=== PATIENT | female | born 1970 | race Caucasian/White ===

== ENCOUNTER → 2016-10-06 | Outpatient (CLI) | payer BC ==
--- NOTE | 2016-10-07 12:53 | MM ---
Reason for exam: screening (asymptomatic). Last mammogram was performed 5 years and 6 months ago. History: Family history of breast cancer in grandmother at age 82. Physical Findings: A clinical breast exam by your physician is recommended on an annual basis and results should be correlated with mammographic findings. MG Screening Mammo w CAD Bilateral CC and MLO view(s) were taken. Prior study comparison: April 22, 2011, bilateral digital screening mammo w/CAD. April 14, 2006, bilateral screening mammogram w/CAD. There are scattered fibroglandular densities. Focal asymmetry in the left outer upper region posteriorly, increased. This finding is changed when compared with previous exams. ASSESSMENT: Incomplete: need additional imaging evaluation, BI-RAD 0 RECOMMENDATION: Special view mammogram of the left breast. If lesion persists on supplemental views, image directed ultrasound is recommended. [facility] will attempt to contact patient to return for supplemental views and ultrasound if indicated.
== END | disposition home or self-care (01) ==
LOC: RADMAMWWP 08:31
PROVIDERS: ATTEND Family Medicine
DX: Z12.31 Encounter for screening mammogram for malignant neoplasm of breast (principal)

== ENCOUNTER → 2016-10-11 | Outpatient (CLI) | payer BC ==
--- NOTE | 2016-10-11 08:21 | MM ---
Reason for exam: additional evaluation requested from abnormal screening. Last mammogram was performed less than 1 month ago. History: Patient has history of other cancer at age 36. Family history of breast cancer in grandmother at age 82 and breast cancer in 3 aunts at age 60. Took hormonal contraceptives for 12 years beginning at age 14. Physical Findings: Nurse did not find any significant physical abnormalities on exam. MG Work Up Mamm w CAD LT CC, MLO, LM, and spot compression MLO view(s) were taken of the left breast. Prior study comparison: October 06, 2016, bilateral MG screening mammo w CAD. April 22, 2011, bilateral digital screening mammo w/CAD. Asymmetric breast tissue. No significant new findings when compared with previous films. These results were verbally communicated with the patient and result sheet given to the patient on 10/27/16. ASSESSMENT: Benign, BI-RAD 2 RECOMMENDATION: Return to routine screening mammogram schedule for both breasts.
== END | disposition home or self-care (01) ==
LOC: RADMAMWWP 07:01
PROVIDERS: ATTEND Family Medicine
DX: R92.8 Other abnormal and inconclusive findings on diagnostic imaging of breast (principal); Z80.3 Family history of malignant neoplasm of breast

== ENCOUNTER → 2017-02-18 | Outpatient (CLI) | payer BC ==
--- NOTE | 2017-02-18 14:12 | US ---
EXAMINATION TYPE: US duplex aorta DATE OF EXAM: 02/18/2017 COMPARISON: CT abdomen and pelvis December 08, 2015 CLINICAL HISTORY: R19.00 abdominal mass. EXAM MEASUREMENTS: Abdominal Aorta: Proximal: 1.4 x1.3 cm Mid: 1.4 x 1.3 cm Distal: 1.5 x 1.4 bilateral iliac arteries patent and wnl for caliber negative for aneurysm IMPRESSION: Abdominal aorta is visualized in its entirety without ultrasound evidence for aneurysm.
== END | disposition home or self-care (01) ==
LOC: RADUSWWP 13:40
PROVIDERS: ATTEND Family Medicine
DX: R19.00 Intra-abdominal and pelvic swelling, mass and lump, unspecified site (principal); Z88.0 Allergy status to penicillin; Z88.2 Allergy status to sulfonamides
CPT/HCPCS: 93979

== ENCOUNTER → 2018-05-17 | Outpatient (CLI) | payer BC ==
--- NOTE | 2018-05-18 13:55 | MM ---
Reason for exam: screening (asymptomatic). Last mammogram was performed 1 year and 7 months ago. History: Patient has history of other cancer at age 36. Family history of breast cancer in grandmother at age 82 and breast cancer in 3 aunts at age 60. Took hormonal contraceptives for 12 years beginning at age 14. Physical Findings: A clinical breast exam by your physician is recommended on an annual basis and results should be correlated with mammographic findings. MG Screening Mammo w CAD Bilateral CC and MLO view(s) were taken. Prior study comparison: October 11, 2016, left breast MG work up mamm w CAD LT. October 06, 2016, bilateral MG screening mammo w CAD. There are scattered fibroglandular densities. No suspicious abnormality. Left lateral asymmetry is less conspicuous than 2017 and seen back to 2006. ASSESSMENT: Benign, BI-RAD 2 RECOMMENDATION: Routine screening mammogram of both breasts in 1 year.
== END | disposition home or self-care (01) ==
LOC: RADMAMWWP 13:29
PROVIDERS: ATTEND Family Medicine
DX: Z12.31 Encounter for screening mammogram for malignant neoplasm of breast (principal); Z80.3 Family history of malignant neoplasm of breast
CPT/HCPCS: 77067

== ENCOUNTER → 2020-09-26 | Outpatient (CLI) | payer BC ==
--- NOTE | 2020-09-29 14:16 | MM ---
Reason for exam: screening (asymptomatic). Last mammogram was performed 2 years and 4 months ago. History: Patient has history of other cancer at age 36. Family history of breast cancer in grandmother at age 82 and breast cancer in 3 aunts at age 60. Took hormonal contraceptives for 12 years beginning at age 14. Physical Findings: A clinical breast exam by your physician is recommended on an annual basis and results should be correlated with mammographic findings. MG Screening Mammo w CAD Bilateral CC and MLO view(s) were taken. Prior study comparison: May 17, 2018, bilateral MG screening mammo w CAD. October 11, 2016, left breast MG work up mamm w CAD LT. There are scattered fibroglandular densities. Finding: There are indeterminate grouped/clustered calcifications in the anterior position of the left breast. Asymmetric breast tissue in the left breast is stable. New finding since May 17, 2018 and October 11, 2016. ASSESSMENT: Incomplete: need additional imaging evaluation, BI-RAD 0 RECOMMENDATION: Special view mammogram of the left breast. [facility] will attempt to contact patient to return for supplemental views.
== END | disposition home or self-care (01) ==
LOC: RADMAMWWP 09:16
PROVIDERS: ATTEND Family Medicine
DX: Z12.31 Encounter for screening mammogram for malignant neoplasm of breast (principal); Z80.3 Family history of malignant neoplasm of breast
CPT/HCPCS: 77067

== ENCOUNTER → 2020-10-01 | Outpatient (CLI) | payer BC ==
--- NOTE | 2020-10-01 08:59 | MM ---
Reason for exam: additional evaluation requested from abnormal screening. Last mammogram was performed less than 1 month ago. History: Patient has history of other cancer at age 36. Family history of breast cancer in grandmother at age 82 and breast cancer in 3 aunts at age 60. Took hormonal contraceptives for 12 years beginning at age 14. Physical Findings: Nurse did not find any significant physical abnormalities on exam. MG Work Up Mamm w CAD LT Spot compression CC, spot compression LM, and LM view(s) were taken of the left breast. Prior study comparison: September 26, 2020, bilateral MG screening mammo w CAD. May 17, 2018, bilateral MG screening mammo w CAD. Two indeterminate groups of microcalcifications upper outer and inner central left breast 2cm from nipple. Biopsy recommended. These results were verbally communicated with the patient and result sheet given to the patient on 10/01/20. ASSESSMENT: Suspicious, BI-RAD 4 RECOMMENDATION: Stereotactic core biopsy of the left breast. (2 sites) Called Dr. Og's office with mammographic findings and has scheduled an appointment for the patient with Dr. Mitchell. Biopsy scheduled for 11/03/20 at 8:00. PRELIMINARY REPORT CALLED AND FAXED TO DR. MITCHELL ON 10/01/20.
== END | disposition home or self-care (01) ==
LOC: RADMAMWWP 07:38
PROVIDERS: ATTEND Family Medicine
DX: R92.0 Mammographic microcalcification found on diagnostic imaging of breast (principal); Z80.3 Family history of malignant neoplasm of breast
CPT/HCPCS: 77065

== ENCOUNTER → 2020-11-03 | Day surgery (SDC) | payer BC ==
[2020-11-03 09:32] VITALS: BP 125/85; PULSE 65; RESP 16; TEMP 98.5
--- NOTE | 2020-11-03 16:54 | MM ---
STEREOTACTIC GUIDED VACUUM-ASSISTED BREAST BIOPSY RADIOLOGIST: Renard Mckeon M.D. ANESTHESIA: 1% buffered lidocaine as local anesthetic DEVICE: Mammotome 8 gauge BIOPSY MARKER CLIP: No SPECIMEN RADIOGRAPH: Yes COMPLICATIONS: None DISCUSSION: The procedure and risks were explained to the patient and written informed consent obtain ed. Using local anesthetic, sterile technique and stereotactic guidance, the stereotactic vacuum ass isted core biopsy device was advanced and positioned in the region of microcalcifications left breast . The stereotactic core biopsy device was advanced according to the stereotactic coordinates and posi tioned in the region of the calcifications. Multiple core samples were obtained. Breast specimen ra diograph confirmed presence of a few microcalcifications. The area of the anterior retroareolar breas t calcifications was difficult to biopsy on this 2-D unit. A 3-D guided biopsy of these microcalcific ations may be helpful depending on pathology results. An attempt to deploy the biopsy marker clip was unsuccessful. Hemostasis was achieved with direct com pression over the breast. Postprocedural imaging shows no biopsy marker clip. There were no complications. The patient tolerate d procedure well. Post procedure instructions were given to the patient and the patient was discharge d in satisfactory condition. A follow-up letter will be forthcoming after receiving pathology resul ts. IMPRESSION: Technically successful stereotactic guided vacuum assisted core biopsy left breast with breast specim en radiograph obtained, and 2 view mammogram performed. The biopsy marker clip could not be deployed . A repeat biopsy with 3-D stereotactic guidance may be helpful. Pathology results will be reviewed.
--- NOTE | 2020-11-03 17:11 | MM ---
EXAMINATION TYPE: MG discontinued stereo core LT DATE OF EXAM: 11/03/2020 COMPARISON: Same date CLINICAL HISTORY: Suspicious retroareolar calcifications TECHNIQUE: Discontinued Stereotactic guided core biopsy of left breast. FINDINGS: The procedure of stereotactic guided core biopsy was explained to the patient. Benefits, a lternatives, and risks were discussed. An informed consent was then obtained. The procedure was canceled due to inability to target the microcalcifications seen at the second site of microcalcifications in the retroareolar breast. These may be more easily targeted on a 3-D stereo tactic biopsy device. This procedure should be rescheduled to a 3-D stereotactic guided biopsy. IMPRESSION: Discontinued stereotactic guided biopsy of the left breast. This procedure should be rescheduled to a 3-D stereotactic guided biopsy of retroareolar microcalcifications.
== END ==
LOC: RADMAMWWP 07:15
PROVIDERS: ATTEND Surgery
DX: N60.12 Diffuse cystic mastopathy of left breast (principal); R92.1 Mammographic calcification found on diagnostic imaging of breast; R92.8 Other abnormal and inconclusive findings on diagnostic imaging of breast; Z88.0 Allergy status to penicillin; Z88.2 Allergy status to sulfonamides; Z88.8 Allergy status to other drugs, medicaments and biological substances
CPT/HCPCS: 88305; 19081; A4648; J2001

== ENCOUNTER → 2021-06-17 | Outpatient (CLI) | payer BC ==
--- NOTE | 2021-06-17 14:08 | MM ---
Reason for exam: additional evaluation requested from prior study. Last mammogram was performed 8 months ago. History: Patient has history of other cancer at age 36. Family history of breast cancer in grandmother at age 82 and breast cancer in 3 aunts at age 60. Benign MG stereo VAD BX LT of the left breast, November 03, 2020. MG discontinued stereo core LT of the left breast, November 03, 2020. Took hormonal contraceptives for 12 years beginning at age 14. Physical Findings: Nurse did not find any significant physical abnormalities on exam. MG 3D Diag Mammo W/Cad LT CC, MLO, CC with magnification, and ML with magnification view(s) were taken of the left breast. Prior study comparison: October 01, 2020, left breast MG work up mamm w CAD LT. September 26, 2020, bilateral MG screening mammo w CAD. There are scattered fibroglandular densities. Global asymmetry lateral posterior is unchanged. Two faint groups of subareolar calcifications. These are smudgy on CC and may begin to layer on lateral. Benign milk of calcium is suspected. These results were verbally communicated with the patient and result sheet given to the patient on 06/17/21. ASSESSMENT: Probably benign, BI-RAD 3 RECOMMENDATION: Follow-up diagnostic mammogram of both breasts in 3 months. Back on schedule for September 2021.
== END | disposition home or self-care (01) ==
LOC: RADMAMWWP 12:58
PROVIDERS: ATTEND Surgery
DX: R92.8 Other abnormal and inconclusive findings on diagnostic imaging of breast (principal); Z80.3 Family history of malignant neoplasm of breast
CPT/HCPCS: 77061; 77065

== ENCOUNTER → 2021-11-03 | Outpatient (CLI) | payer BC ==
--- NOTE | 2021-11-17 07:09 | MM ---
Reason for Exam: Hx of benign breast biopsy. Last mammogram was performed 1 year(s) and 1 month(s) ago. Patient History: Menarche at age 9. First Full-Term at age 21. Postmenopausal. Hormonal Contraceptives for 12 years from age 14 until age 26. 11/03/2020, Benign Core Biopsy on the left side. 11/03/2020, MG discontinued stereo core LT on the left side. Paternal grandmother had breast cancer, age 82. Paternal aunt had breast cancer, age 60. Paternal aunt had breast cancer, age 60. Paternal aunt had breast cancer, age 60. Risk Values: Lela 5 year model risk: 1.2%. NCI Lifetime model risk: 10.0%. Prior Study Comparison: 04/22/2011 Bilateral Screening Mammogram, [facility]. 10/06/2016 Bilateral Screening Mammogram, [facility]. 05/17/2018 Bilateral Screening Mammogram, [facility]. 09/26/2020 Bilateral Screening Mammogram, [facility]. 10/01/2020 Left Diagnostic Mammogram, [facility]. Tissue Density: There are scattered fibroglandular densities. Findings: Analyzed By CAD. 2 subtle groups of calcifications anterior subareolar/periareolar left breast remain unchanged for one year. Ongoing follow-up is recommended. Benign etiology is suspected given the stability. Unchanged asymmetric density posterolateral left cc view. Otherwise, no significant change from prior exams. Overall Assessment: Probably benign, BI-RAD 3 Management: Diagnostic Mammogram of the left breast in 6 months. 6 month follow-up diagnostic left breast mammogram for the 2 subtle groups of microcalcifications anteriorly (this will be a total 1.5 year follow-up). Patient should continue monthly self breast exams. Electronically signed and approved by: Bob Perkins M.D. Radiologist
== END | disposition home or self-care (01) ==
LOC: RADMAMWWP 11:00
PROVIDERS: ATTEND Surgery
DX: R92.1 Mammographic calcification found on diagnostic imaging of breast (principal); Z78.0 Asymptomatic menopausal state; Z80.3 Family history of malignant neoplasm of breast
CPT/HCPCS: 77062; 77066

== ENCOUNTER → 2022-05-17 | Outpatient (CLI) | payer BC ==
--- NOTE | 2022-05-17 13:29 | MM ---
Reason for Exam: Follow-up at short interval from prior study. Last screening mammogram was performed 7 month(s) ago. Patient History: Menarche at age 9. First Full-Term at age 21. Postmenopausal. Hormonal Contraceptives for 12 years from age 14 until age 26. 11/03/2020, Benign Core Biopsy on the left side. 11/03/2020, MG discontinued stereo core LT on the left side. Paternal grandmother had breast cancer, age 82. Paternal aunt had breast cancer, age 60. Paternal aunt had breast cancer, age 60. Paternal aunt had breast cancer, age 60. Risk Values: Lela 5 year model risk: 1.3%. NCI Lifetime model risk: 9.8%. Prior Study Comparison: 10/01/2020 Left Diagnostic Mammogram, [facility]. 06/17/2021 Left Diagnostic Mammogram, [facility]. 11/03/2021 Bilateral MG 3D diag mammo w/cad CEDRIC, [facility]. Tissue Density: Left: The breast tissue is heterogeneously dense. This may lower the sensitivity of mammography. Findings: Analyzed By CAD. Scattered benign calcifications left breast. No suspicious clusters seen. No mass or distortion. Overall Assessment: Benign, BI-RAD 2 Management: Screening Mammogram of both breasts in 6 months. A clinical breast exam by your physician is recommended on an annual basis and results should be correlated with mammographic findings. This exam should not preclude additional follow-up of suspicious palpable abnormalities. Results were given to the patient verbally at the time of exam. Electronically signed and approved by: Amol Crawford M.D. Radiologis
== END | disposition home or self-care (01) ==
LOC: RADMAMWWP 13:06
PROVIDERS: ATTEND Surgery
DX: R92.8 Other abnormal and inconclusive findings on diagnostic imaging of breast (principal); Z78.0 Asymptomatic menopausal state; Z80.3 Family history of malignant neoplasm of breast
CPT/HCPCS: 77061; 77065

== ENCOUNTER → 2022-11-26 | Outpatient (CLI) | payer BC ==
--- NOTE | 2022-11-29 07:41 | MM ---
Reason for Exam: Screening (asymptomatic). Last mammogram was performed 1 year(s) and 1 month(s) ago. Patient History: Menarche at age 9. First Full-Term at age 21. Postmenopausal. Hormonal Contraceptives for 12 years from age 14 until age 26. 11/03/2020, Benign Core Biopsy on the left side. 11/03/2020, MG discontinued stereo core LT on the left side. Paternal grandmother had breast cancer, age 82. Paternal aunt had breast cancer, age 60. Paternal aunt had breast cancer, age 60. Paternal aunt had breast cancer, age 60. Paternal aunt had breast cancer at or over age 50. Maternal grandmother had ovarian cancer under age 50. Risk Values: Lela 5 year model risk: 1.3%. NCI Lifetime model risk: 9.8%. Prior Study Comparison: 10/06/2016 Bilateral Screening Mammogram, [facility]. 10/11/2016 Left Diagnostic Mammogram, [facility]. 05/17/2018 Bilateral Screening Mammogram, [facility]. 09/26/2020 Bilateral Screening Mammogram, [facility]. 10/01/2020 Left Diagnostic Mammogram, [facility]. 06/17/2021 Left Diagnostic Mammogram, [facility]. 11/03/2021 Bilateral MG 3D diag mammo w/cad CEDRIC, [facility]. 05/17/2022 Left MG 3D diag mammo w/cad LT, [facility]. Tissue Density: There are scattered fibroglandular densities. Findings: Analyzed By CAD. There is no suspicious group of microcalcifications or new suspicious mass in either breast. Overall Assessment: Negative, BI-RAD 1 Management: Screening Mammogram of both breasts in [address] [facility] will attempt to contact patient to return for supplemental views and ultrasound if indicated. Patient should continue monthly self-breast exams. A clinical breast exam by your physician is recommended on an annual basis. This exam should not preclude additional follow-up of suspicious palpable abnormalities. Note on Lela scores and lifetime risk: 1. A Lela score greater than 3% is considered moderate risk. If this is the case, consider specialist referral to assess eligibility for a risk reducing agent. 2. If overall lifetime risk for the development of breast cancer is 20% or higher, the patient may qualify for future screening with alternating mammogram and breast MRI. Electronically signed and approved by: Jean Carlos Chahal DO
== END | disposition home or self-care (01) ==
LOC: RADMAMWWP 08:27
PROVIDERS: ATTEND Surgery
DX: Z12.31 Encounter for screening mammogram for malignant neoplasm of breast (principal); Z78.0 Asymptomatic menopausal state; Z80.3 Family history of malignant neoplasm of breast
CPT/HCPCS: 77063; 77067

== ENCOUNTER 2023-11-11 09:15 | Observation (INO) | payer BC ==
--- NOTE | 2023-11-11 09:27 | ED ---
General Adult HPI - General Stated complaint: ZOE Time Seen by Provider: 11/11/23 09:19 Source: patient, RN notes reviewed Mode of arrival: wheelchair Limitations: no limitations - History of Present Illness Initial comments: Patient is a 52-year-old female present to the emergency department with abdominal discomfort. Abdominal discomfort just started prior to arrival, less than an hour. Patient was in a meeting. Patient states discomfort is severe. No history of similar symptoms previously. Patient states it is causing her to be short of breath. Patient denies chest pain. No nausea or vomiting. No constipation or diarrhea. - Related Data Home Medications Medication Instructions Recorded Confirmed Triamterene/Hydrochlorothiazid 1 cap PO QAM 02/26/22 11/11/23 [Triamterene-Hctz 37.5-25 mg Cp] Allergies Allergy/AdvReac Type Severity Reaction Status Date / Time shellfish derived [Shellfish] Allergy Vomiting/SO Verified 11/11/23 10:03 B sulfamethoxazole Allergy Rash/Hives Verified 11/11/23 10:03 [From Febra] trimethoprim [From Febra] Allergy Rash/Hives Verified 11/11/23 10:03 amoxicillin AdvReac Dyspnea Verified 11/11/23 10:03 Review of Systems ROS Statement: Those systems with pertinent positive or pertinent negative responses have been documented in the HPI. ROS Other: All systems not noted in ROS Statement are negative. Constitutional: Denies: fever Eyes: Denies: eye pain ENT: Denies: ear pain Respiratory: Reports: as per HPI, dyspnea Cardiovascular: Reports: as per HPI. Denies: chest pain Gastrointestinal: Reports: as per HPI, abdominal pain Musculoskeletal: Denies: back pain Skin: Denies: rash Neurological: Denies: weakness Past Medical History Past Medical History: Hypertension Additional Past Medical History / Comment(s): KIDNEY STONE History of Any Multi-Drug Resistant Organisms: None Reported Past Surgical History: Appendectomy, Section, Cholecystectomy, Uterine Ablation Additional Past Surgical History / Comment(s): x3 Past Anesthesia/Blood Transfusion Reactions: No Reported Reaction Past Alcohol Use History: None Reported General Exam Limitations: no limitations General appearance: alert, other (Patient does appear uncomfortable) Head exam: Present: normocephalic Eye exam: Present: normal appearance Neck exam: Present: normal inspection Respiratory exam: Present: normal lung sounds bilaterally Cardiovascular Exam: Present: tachycardia, normal heart sounds Expanded Peripheral pulses: 2+: Radial (R), Radial (L), Dorsalis Pedis (R), Dorsalis Pedis (L) GI/Abdominal exam: Present: soft. Absent: distended, tenderness, guarding, rebound, rigid, pulsatile mass Extremities exam: Present: normal inspection Neurological exam: Present: alert Psychiatric exam: Present: anxious Skin exam: Present: normal color Course Vital Signs 11/11/23 11/11/23 11/11/23 09:17 09:27 10:12 Temperature 93.7 F L 97.4 F L Pulse Rate 128 H 104 H Respiratory 18 22 Rate Blood Pressure 145/110 155/96 O2 Sat by Pulse 95 98 Oximetry EKG Findings - EKG Results: EKG: interpreted by SADA (Nonspecific ST), sinus rhythm, normal axis, normal QRS EKG shows: tachycardia Medical Decision Making - Medical Decision Making Was pt. sent in by a medical professional or institution (, PA, HOTEL OPERATIONS MANAGER, urgent care, hospital, or [facility]...) When possible be specific @ -No Did you speak to anyone other than the patient for history (EMS, parent, family, police, friend...)? What history was obtained from this source @ -No Did you review nursing and triage notes (agree or disagree)? Why? @ -I reviewed and agree with nursing and triage notes Were old charts reviewed (outside hosp., previous admission, EMS record, old EKG, old radiological studies, urgent care reports/EKG's, [facility] records)? Report findings @ -No old charts were reviewed Differential Diagnosis (chest pain, altered mental status, abdominal pain women, abdominal pain men, vaginal bleeding, weakness, fever, dyspnea, syncope, headache, dizziness, GI bleed, back pain, seizure, CVA, palpatations, mental health, musculoskeletal)? @ -Differential Abdominal Pain Women: Appendicitis, Cholecystitis, diverticulosis, ischemic bowel, pancreatitis, hepatitis, UTI, gastroenteritis, AAA, incarcerated hernia, bowel obstruction, constipation, inflammatory bowel, hepatitis, peptic ulcer disease, splenic infarction, perforated viscus, vulvitis, ovarian torsion, PID, kidney stone, placenta abruption, this is not meant to be an all-inclusive list EKG interpreted by me (3pts min.). @ -As above X-rays interpreted by me (1pt min.). @ -Chest x-ray shows no acute process CT interpreted by me (1pt min.). @ -CT scan of abdomen pelvis shows colitis. U/S interpreted by me (1pt. min.). @ -None done What testing was considered but not performed or refused? (CT, X-rays, U/S, labs)? Why? @ -None What meds were considered but not given or refused? Why? @ -None Did you discuss the management of the patient with other professionals (professionals i.e. , PA, HOTEL OPERATIONS MANAGER, lab, RT, psych nurse, pediatric social worker, shredder/granulator operator, teacher, affirmative action officer, heel caser)? Give summary @ -Case discussed with Dr. Owens who will admit covering July Yeung Was smoking cessation discussed for >3mins.? @ -No Was critical care preformed (if so, how long)? @ -No Were there social determinants of health that impacted care today? How? (Homelessness, low income, unemployed, alcoholism, drug addiction, transportation, low edu. Level, literacy, decrease access to med. care, residential, rehab)? @ -No Was there de-escalation of care discussed even if they declined (Discuss DNR or withdrawal of care, Hospice)? DNR status @ -No What co-morbidities impacted this encounter? (DM, HTN, Smoking, COPD, CAD, Cancer, CVA, ARF, Chemo, Hep., AIDS, mental health diagnosis, sleep apnea, morbid obesity)? @ -None Was patient admitted / discharged? Hospital course, mention meds given and route, prescriptions, significant lab abnormalities, going to OR and other pertinent info. @ -Patient presents with very severe abdominal discomfort. Significantly improved on reevaluation after 2 doses of pain medication. Discomfort is 3 or 4/10 at this time. Patient has mild tenderness to palpation. Patient will be admitted with surgical consult. Admission orders placed. Undiagnosed new problem with uncertain prognosis? @ -No Drug Therapy requiring intensive monitoring for toxicity (Heparin, Nitro, Insulin, Cardizem)? @ -No Were any procedures done? @ -No Diagnosis/symptom? @ -Colitis Acute, or Chronic, or Acute on Chronic? @ -Acute Uncomplicated (without systemic symptoms) or Complicated (systemic symptoms)? @ -Default Side effects of treatment? @ -No Exacerbation, Progression, or Severe Exacerbation? @ -No Poses a threat to life or bodily function? How? (Chest pain, [place], [place], pneumonia, PE, COPD, DKA, ARF, appy, cholecystitis, CVA, Diverticulitis, Homicidal, Suicidal, threat to staff... and all critical care pts) @ -No - Lab Data Result diagrams: 11/11/23 09:33 11/11/23 09:33 Lab Results 11/11/23 11/11/23 11/11/23 Range/Units 09:33 09:33 09:33 WBC 8.6 (3.8-10.6) k/uL RBC 5.19 (3.80-5.40) m/uL Hgb 15.8 (11.4-16.0) gm/dL Hct 46.7 H (34.0-46.0) % MCV 90.0 D (80.0-100.0) fL MCH 30.4 (25.0-35.0) pg MCHC 33.8 (31.0-37.0) g/dL RDW 12.9 (11.5-15.5) % Plt Count 376 (150-450) k/uL MPV 7.0 Neutrophils % 49 % Lymphocytes % 37 % Monocytes % 7 % Eosinophils % 3 % Basophils % 1 % Neutrophils # 4.3 (1.3-7.7) k/uL Lymphocytes # 3.2 (1.0-4.8) k/uL Monocytes # 0.6 (0-1.0) k/uL Eosinophils # 0.2 (0-0.7) k/uL Basophils # 0.1 (0-0.2) k/uL PT 10.1 (10.0-12.5) sec INR 0.9 (<1.2) APTT 21.1 L (22.0-30.0) sec D-Dimer 0.32 (<0.60) mg/L FEU Sodium 141 (137-145) mmol/L Potassium 3.3 L (3.5-5.1) mmol/L Chloride 106 (98-107) mmol/L Carbon Dioxide 25 (22-30) mmol/L Anion Gap 10 mmol/L BUN 16 (7-17) mg/dL Creatinine 0.88 (0.52-1.04) mg/dL Est GFR (CKD-EPI)AfAm 87 (>60 ml/min/1.73 sqM) Est GFR (CKD-EPI)NonAf 75 (>60 ml/min/1.73 sqM) Glucose 129 H (74-99) mg/dL Calcium 10.1 (8.4-10.2) mg/dL Total Bilirubin 0.8 (0.2-1.3) mg/dL AST 46 H (14-36) U/L ALT 55 H (4-34) U/L Alkaline Phosphatase 98 (38-126) U/L Troponin I (0.000-0.034) ng/mL Total Protein 8.7 H (6.3-8.2) g/dL Albumin 5.0 (3.5-5.0) g/dL Amylase 59 (30-110) U/L Lipase 439 H (23-300) U/L 11/11/23 Range/Units 09:33 WBC (3.8-10.6) k/uL RBC (3.80-5.40) m/uL Hgb (11.4-16.0) gm/dL Hct (34.0-46.0) % MCV (80.0-100.0) fL MCH (25.0-35.0) pg MCHC (31.0-37.0) g/dL RDW (11.5-15.5) % Plt Count (150-450) k/uL MPV Neutrophils % % Lymphocytes % % Monocytes % % Eosinophils % % Basophils % % Neutrophils # (1.3-7.7) k/uL Lymphocytes # (1.0-4.8) k/uL Monocytes # (0-1.0) k/uL Eosinophils # (0-0.7) k/uL Basophils # (0-0.2) k/uL PT (10.0-12.5) sec INR (<1.2) APTT (22.0-30.0) sec D-Dimer (<0.60) mg/L FEU Sodium (137-145) mmol/L Potassium (3.5-5.1) mmol/L Chloride (98-107) mmol/L Carbon Dioxide (22-30) mmol/L Anion Gap mmol/L BUN (7-17) mg/dL Creatinine (0.52-1.04) mg/dL Est GFR (CKD-EPI)AfAm (>60 ml/min/1.73 sqM) Est GFR (CKD-EPI)NonAf (>60 ml/min/1.73 sqM) Glucose (74-99) mg/dL Calcium (8.4-10.2) mg/dL Total Bilirubin (0.2-1.3) mg/dL AST (14-36) U/L ALT (4-34) U/L Alkaline Phosphatase (38-126) U/L Troponin I <0.012 (0.000-0.034) ng/mL Total Protein (6.3-8.2) g/dL Albumin (3.5-5.0) g/dL Amylase (30-110) U/L Lipase (23-300) U/L Disposition Clinical Impression: Colitis Disposition: ADMITTED IP TO THIS HOSP Is patient prescribed a controlled substance at d/c from ED?: No Referrals: July Mitchell MD [Primary Care Provider] - 1-2 days Time of Disposition: 10:59
[2023-11-11] MEDS: HYDROmorphone 1 MG/ML 1 ML SYRINGE IVP STA ×2 (09:28→09:48)
[2023-11-11] MEDS: SODIUM CHLORIDE 0.9% 1,000 ML IV STA (09:32)
[2023-11-11] MEDS: PANTOPRAZOLE 40 MG/10 ML VIAL IVP STA (09:32)
[2023-11-11 09:37] LABS: Basophils # (A) 0.1 k/uL (0-0.2); Basophils % (A) 1 %; Eosinophils # (A) 0.2 k/uL (0-0.7); Eosinophils % (A) 3 %; HCT 46.7 % (34.0-46.0); HGB 15.8 gm/dL (11.4-16.0); Lymphocytes # (A) 3.2 k/uL (1.0-4.8); Lymphocytes % (A) 37 %; MCH 30.4 pg (25.0-35.0); MCHC 33.8 g/dL (31.0-37.0); Monocytes # (A) 0.6 k/uL (0-1.0); Monocytes % (A) 7 %; Neutrophils # (A) 4.3 k/uL (1.3-7.7); Neutrophils % (A) 49 %; Platelet Count 376 k/uL (150-450); RBC 5.19 m/uL (3.80-5.40); RDW 12.9 % (11.5-15.5); WBC 8.6 k/uL (3.8-10.6)
[2023-11-11 09:57] LABS: INR 0.9 (<1.2); Prothrombin Time 10.1 sec (10.0-12.5)
[2023-11-11 10:00] LABS: ALT 55 U/L (4-34); AST 46 U/L (14-36); African American GFR (CKD) 87 (>60 ml/min/1.73 sqM); Alkaline Phosphatase 98 U/L (38-126); Amylase 59 U/L (30-110); Anion Gap 10 mmol/L; Blood Urea Nitrogen 16 mg/dL (7-17); Calcium 10.1 mg/dL (8.4-10.2); Carbon Dioxide 25 mmol/L (22-30); Chloride 106 mmol/L (98-107); Glucose 129 mg/dL (74-99); Lipase 439 U/L (23-300); Non-African American GFR(CKD) 75 (>60 ml/min/1.73 sqM); Partial Thromboplastin Time 21.1 sec (22.0-30.0); Potassium 3.3 mmol/L (3.5-5.1); Sodium 141 mmol/L (137-145); Total Bilirubin 0.8 mg/dL (0.2-1.3); Total Protein 8.7 g/dL (6.3-8.2)
--- NOTE | 2023-11-11 10:16 | XR ---
EXAMINATION TYPE: XR chest 1V portable DATE OF EXAM: 11/11/2023 COMPARISON: NONE HISTORY: Difficulty in breathing TECHNIQUE: Single frontal view of the chest is obtained. FINDINGS: There is no focal air space opacity, pleural effusion, or pneumothorax seen. The cardiac silhouette size is within normal limits. The osseous structures are intact. Limited inspiration. Clemente rgical clips in the gallbladder fossa. IMPRESSION: No acute process.
--- NOTE | 2023-11-11 10:21 | CT ---
EXAMINATION TYPE: CT abdomen pelvis w con DATE OF EXAM: 11/11/2023 COMPARISON: NONE HISTORY: 52-year-old female Abdominal pain TECHNIQUE: Contiguous axial scanning of the abdomen and pelvis following administration of 100 ml Iso maurice 300 IV contrast. Delayed images through the kidneys and coronal/sagittal reconstructions perform ed. CT DLP: 808.3 mGycm Automated exposure control for dose reduction was used. FINDINGS: The heart is normal size without pericardial effusion. Strandy atelectasis lower lungs with out pleural effusion. Tiny 1 cm minute hepatic cyst. Portal venous system is patent. mild prominence to the bile duct at 6 mm likely chronic due to postcholecystectomy status. Adrenal glands, right kidney, spleen, and pancreas within normal limits. 2.8 cm diverticulum of the d uodenum projecting into the pancreatic head region. 4 mm nonobstructive left lower pole renal calculus. A couple benign 8 mm cortical cyst left kidney. No excretion of contrast seen on the delayed phase. Correlate with patient's kidney function. No dilated small bowel, free fluid, or free air. Some surgical material noted in the right lower quadrant suggesting prior appendectomy. There is some circumferential wall thickening throughout the colon extending from the cecum through t he descending colon and then mildly involving the rectum as well. Sigmoid colon relatively spared. So me associated liquid stool in the right side of the colon. No significant stool burden. Bladder partially distended. Uterus anteverted. 2.3 cm cyst of the left ovary. Right ovary not well seen. No abnormal fluid collection in the pelvis or pelvic lymphadenopathy. Bones: Facet arthropathy lower lumbar spine. IMPRESSION: 1. MILD TO MODERATE CIRCUMFERENTIAL WALL THICKENING THROUGHOUT MOST OF THE COLON, SPARING THE SIGMOID COLON. CONSIDER AN INFECTIOUS OR INFLAMMATORY COLITIS. 2. A 4 MM NONOBSTRUCTIVE LEFT RENAL STONE. 3. NO EXCRETION OF CONTRAST FROM THE KIDNEYS ON THE DELAYED SCAN. THIS MAY BE DUE TO SCAN TIMING. COR RELATE WITH THE PATIENT'S KIDNEY FUNCTION TO EXCLUDE CHANTAL. 4. A 2.3 CM CYST OF THE LEFT OVARY. CORRELATE WITH THE PATIENT'S MENOPAUSAL STATE. IF POSTMENOPAUSAL, OUTPATIENT PELVIC ULTRASOUND CAN PROVIDE FURTHER CHARACTERIZATION AND PROVIDE SUBSEQUENT FOLLOW-UP R ECOMMENDATIONS.
[2023-11-11] MEDS ORDERED: ONDANSETRON 4 MG/2 ML VIAL IVP PRN (10:59)
[2023-11-11] MEDS ORDERED: NALOXONE 0.4 MG/ML 1 ML VIAL IV PRN (10:59)
[2023-11-11] MEDS: SODIUM CHLORIDE 0.9% 1,000 ML IV SCH (11:15)
--- NOTE | 2023-11-11 14:39 | P.GSCN ---
History of Present Illness Consult date: 11/11/23 History of present illness: CHIEF COMPLAINT: Abdominal pain HISTORY OF PRESENT ILLNESS: This is a 52-year-old female who presented with sharp cramping abdominal pain located in the upper abdomen that started this morning. She rates the pain a 10 out of 10. It was causing her to be short of breath. She does report nausea no vomiting. She has been having diarrhea. She reports no blood in her stools. The last episode of diarrhea was this morning. She reports that she has been having some intermittent abdominal cramping over the last 6 weeks but the pain this morning was the most severe pain. CT scan reported evidence of colitis. She did have elevated lactic acid level. She had been mildly tachycardic. Patient's past surgical history does include appen dectomy, cholecystectomy C-sections x 3 and uterine ablation. Family history of a sister and son with colitis and a grandmother with colon cancer. Patient reports recent traveling to [place] and just returned home 2 days ago. She reports that no 1 else is sick that she traveled with. She denies any sick contacts. Patient does report improvement in pain after receiving pain medication. Patient denies any alcohol use. Patient reports her last colonoscopy was about 11 years ago. Patient denies any recent antibiotic use. PAST MEDICAL HISTORY: Hypertension, kidney stone PAST SURGICAL HISTORY: Appendectomy, Section, Cholecystectomy, Uterine Ablation MEDICATIONS: See below ALLERGIES: See below SOCIAL HISTORY: No illicit drug use. REVIEW OF SYSTEMS: CONSTITUTIONAL: Denies fever or chills. HEENT: Denies blurred vision, vision changes, or eye pain. Denies hemoptysis CARDIOVASCULAR: Denies chest pain or pressure. RESPIRATORY: No shortness of breath. GASTROINTESTINAL: See HPI for pertinent findings HEMATOLOGIC: Denies bleeding disorders. GENITOURINARY: Denies any blood in urine or increased urinary frequency. SKIN: Denies pruitis. Denies rash. PHYSICAL EXAM: VITAL SIGNS: Reviewed GENERAL: Well-developed in no acute distress. HEENT: No sclera icterus. Extraocular movements grossly intact. Moist buccal mucosa. Head is atraumatic, normocephalic. No nasal drainage. ABDOMEN: Soft. Nondistended. Currently nontender. NEUROLOGIC: Alert and oriented. Cranial nerves II through XII grossly intact. LABORATORY DATA: WBC 8.6 Hgb 15.8 platelets 376 D-dimer 0.32 Sodium 141 potassium 3.3 creatinine 0.88 Lactic acid 2.1 down to 1.1 Total bili 0.8 AST 46 ALT 55 alk phos 98 Troponin negative Lipase 439 amylase 59 IMAGING: CT scan abdomen pelvis reports mild to moderate circumferential wall thickening throughout most of the colon with sparing the sigmoid colon. Consider an infectious or inflammatory colitis. 4 mm nonobstructive left renal stone. 2.3 cm cyst of the left ovary. ASSESSMENT: 1. Colitis with abdominal pain abdominal pain and diarrhea. CT scan showing mild to moderate circumferential wall thickening throughout most of the colon. Consider infectious or inflammatory colitis 2. Mildly elevated lipase and LFTs. History of cholecystectomy and denies ETOH use PLAN: -Plan for colonoscopy Tuesday with Dr. Choudhary -Continue clear liquid diet -Check stool studies -Check stool for C. difficile -Repeat LFTS, lipase in AM -Continue fluids -Continue pain management and antiemetics colonoscopy Physician Grievance And Appeals Coordinator note has been reviewed by physician. Signing provider agrees with the documented findings, assessment, and plan of care. Past Medical History Past Medical History: Hypertension Additional Past Medical History / Comment(s): KIDNEY STONE History of Any Multi-Drug Resistant Organisms: None Reported Past Surgical History: Appendectomy, Section, Cholecystectomy, Uterine Ablation Additional Past Surgical History / Comment(s): x3 Past Anesthesia/Blood Transfusion Reactions: No Reported Reaction Past Alcohol Use History: None Reported Medications and Allergies Home Medications Medication Instructions Recorded Confirmed Type Triamterene/Hydrochlorothiazid 1 cap PO QAM 02/26/22 11/11/23 History [Triamterene-Hctz 37.5-25 mg Cp] Allergies Allergy/AdvReac Type Severity Reaction Status Date / Time shellfish derived [Shellfish] Allergy Vomiting/SO Verified 11/11/23 10:03 B sulfamethoxazole Allergy Rash/Hives Verified 11/11/23 10:03 [From ] trimethoprim [From ] Allergy Rash/Hives Verified 11/11/23 10:03 amoxicillin AdvReac Dyspnea Verified 11/11/23 10:03 Surgical - Exam Vital Signs Temp Pulse Resp BP Pulse Ox 96.7 F L 128 H 18 145/110 95 11/11/23 09:17 11/11/23 09:17 11/11/23 09:17 11/11/23 09:17 11/11/23 09:17 Results - Labs 11/11/23 09:33 11/11/23 09:33 Abnormal Lab Results - Last 24 Hours (Table) 11/11/23 11/11/23 11/11/23 Range/Units 09:33 09:33 09:33 Hct 46.7 H (34.0-46.0) % APTT 21.1 L (22.0-30.0) sec Potassium 3.3 L (3.5-5.1) mmol/L Glucose 129 H (74-99) mg/dL Plasma Lactic Acid Chad (0.7-2.0) mmol/L AST 46 H (14-36) U/L ALT 55 H (4-34) U/L Total Protein 8.7 H (6.3-8.2) g/dL Lipase 439 H (23-300) U/L 11/11/23 Range/Units 11:04 Hct (34.0-46.0) % APTT (22.0-30.0) sec Potassium (3.5-5.1) mmol/L Glucose (74-99) mg/dL Plasma Lactic Acid Chad 2.1 H* (0.7-2.0) mmol/L AST (14-36) U/L ALT (4-34) U/L Total Protein (6.3-8.2) g/dL Lipase (23-300) U/L Diabetes panel 11/11/23 Range/Units 09:33 Sodium 141 (137-145) mmol/L Potassium 3.3 L (3.5-5.1) mmol/L Chloride 106 (98-107) mmol/L Carbon Dioxide 25 (22-30) mmol/L BUN 16 (7-17) mg/dL Creatinine 0.88 (0.52-1.04) mg/dL Glucose 129 H (74-99) mg/dL Calcium 10.1 (8.4-10.2) mg/dL AST 46 H (14-36) U/L ALT 55 H (4-34) U/L Alkaline Phosphatase 98 (38-126) U/L Total Protein 8.7 H (6.3-8.2) g/dL Albumin 5.0 (3.5-5.0) g/dL Calcium panel 11/11/23 Range/Units 09:33 Calcium 10.1 (8.4-10.2) mg/dL Albumin 5.0 (3.5-5.0) g/dL Pituitary panel 11/11/23 Range/Units 09:33 Sodium 141 (137-145) mmol/L Potassium 3.3 L (3.5-5.1) mmol/L Chloride 106 (98-107) mmol/L Carbon Dioxide 25 (22-30) mmol/L BUN 16 (7-17) mg/dL Creatinine 0.88 (0.52-1.04) mg/dL Glucose 129 H (74-99) mg/dL Calcium 10.1 (8.4-10.2) mg/dL Adrenal panel 11/11/23 Range/Units 09:33 Sodium 141 (137-145) mmol/L Potassium 3.3 L (3.5-5.1) mmol/L Chloride 106 (98-107) mmol/L Carbon Dioxide 25 (22-30) mmol/L BUN 16 (7-17) mg/dL Creatinine 0.88 (0.52-1.04) mg/dL Glucose 129 H (74-99) mg/dL Calcium 10.1 (8.4-10.2) mg/dL Total Bilirubin 0.8 (0.2-1.3) mg/dL AST 46 H (14-36) U/L ALT 55 H (4-34) U/L Alkaline Phosphatase 98 (38-126) U/L Total Protein 8.7 H (6.3-8.2) g/dL Albumin 5.0 (3.5-5.0) g/dL
[2023-11-11] MEDS: metroNIDAZOLE 500 MG TAB PO SCH (16:35)
[2023-11-11] MEDS: LEVOFLOXACIN 500MG-D5W PMX 500 MG in DEXTROSE/WATER 1 100ML.BAG IVPB SCH (16:35)
[2023-11-11] MEDS: HYDROmorphone 1 MG/ML 1 ML SYRINGE IVP PRN (18:44)
--- NOTE | 2023-11-11 21:43 | HP ---
HISTORY AND PHYSICAL CHIEF COMPLAINT: Abdominal pain, diarrhea. HISTORY OF PRESENT ILLNESS: This is a 52-year-old woman with a past medical history of multiple medical problems such as hypertension, being followed by Dr. July Mitchell in the outpatient setting, recently returned from vacation from [place]. The patient is complaining of diffuse abdominal pain as well as multiple episodes of diarrhea. The patient was admitted for further evaluation and treatment. There is no history of any fever, rigors, or chills at this time. Evaluation in the ER showed evidence of some elevated lactic acid, elevated lipase and also a CT scan of the abdomen and pelvis was done in the ER, which showed mild to moderate circumferential wall thickening throughout. Most of the colon has sparing sigmoid, renal cyst and also has left renal stone. There is no history of any fever, rigors, or chills at this time. PAST MEDICAL HISTORY: Hypertension, kidney stone. Rest of the history and rest of the chart is also reviewed. HOME MEDICATIONS: Reviewed include triamterene, hydrochlorothiazide. ALLERGIES: Shellfish. Rest of the allergies noted. FAMILY HISTORY: No history of heart disease or strokes in the family. SOCIAL HISTORY: No history of smoking or alcohol. REVIEW OF SYSTEMS: A 14-point review is negative except as mentioned earlier. PHYSICAL EXAMINATION: VITAL SIGNS: Pulse is 79, blood pressure 105/76, respirations 16. HEENT: Conjunctivae normal. NECK: No JVD. CARDIOVASCULAR: S1, S2. RESPIRATIONS: Breath sounds diminished at the bases. ABDOMEN: Soft, mild diffuse tenderness present. No guarding. No rigidity. No mass palpable. No ascites. LEGS: No edema. NERVOUS SYSTEM: Nonfocal. LABORATORY DATA: CBC within normal limits. Potassium 3.3. Rest of the labs are noted. ASSESSMENT: 1. Abdominal pain, diarrhea, possibly diffuse colitis, possibly infectious versus inflammatory. 2. Elevated AST, ALT. 3. Elevated lipase with normal amylase. 4. History of hypertension, history of renal stones. 5. Appendectomy. RECOMMENDATIONS AND DISCUSSION: This is a 52-year-old woman, who presented with multiple complex medical issues, we will monitor the patient closely. Continue the current medications, continue symptomatic treatment. Otherwise, at this time, I would recommend broad-spectrum IV antibiotics, symptomatic treatment. Surgical evaluation. Guarded prognosis because of multiple complex medical issues. Further recommendations to follow. See orders for further details. Recommend close followup Dr. July Mitchell in the outpatient setting. MMODL / IJN: [id number] /
[2023-11-12 02:53] VITALS: RESP 16
[2023-11-12] MEDS: PANTOPRAZOLE 40 MG/10 ML VIAL IV SCH (08:33)
[2023-11-12] MEDS: TRIAMTERENE-HCTZ 37.5-25MG 1 EACH CAP PO SCH (08:33)
[2023-11-12 09:42] LABS: ALT 47 U/L (8-44); AST 28 U/L (13-35); Albumin/Globulin Ratio 1.67 Ratio (1.60-3.17); Alkaline Phosphatase 69 U/L (41-126); Amylase 38 U/L (23-121); Blood Urea Nitrogen 8.1 mg/dL (9.0-27.0); Calcium 8.7 mg/dL (8.7-10.3); Carbon Dioxide 26.9 mmol/L (21.6-31.8); Chloride 103 mmol/L (96-109); Globulin 2.4 g/dL (1.6-3.3); Glucose 92 mg/dL (70-110); Lipase 51 U/L (14-63); Potassium 3.1 mmol/L (3.5-5.5); Sodium 140 mmol/L (135-145); Total Bilirubin 0.5 mg/dL (0.3-1.2); Total Protein 6.4 g/dL (6.2-8.2)
[2023-11-12 09:46] LABS: Basophils # (A) 0.04 X 10*3/uL (0.00-0.10); Basophils % (A) 0.6 %; Eosinophils # (A) 0.36 X 10*3/uL (0.04-0.35); Eosinophils % (A) 5.5 %; HGB 12.3 g/dL (12.0-15.0); Lymphocytes # (A) 2.32 X 10*3/uL (0.90-5.00); Lymphocytes % (A) 35.4 %; MCH 30.1 pg (27.0-32.0); MCHC 33.2 g/dL (32.0-37.0); MCV 90.7 FL (80.0-97.0); Mean Platelet Volume 9.4 FL (9.5-12.2); Monocytes # (A) 0.57 X 10*3/uL (0.20-1.00); Monocytes % (A) 8.7 %; NRBC Per 100 WBC 0 X 10*3/uL (0.00-0.01); Neutrophils # (A) 3.25 X 10*3/uL (1.80-7.70); Neutrophils % (A) 49.6 %; Platelet Count 249 X 10*3/uL (140-440); RBC 4.08 X 10*6/uL (4.10-5.20); WBC 6.55 X 10*3/uL (4.50-10.00)
--- NOTE | 2023-11-12 11:41 | P.PN ---
Subjective Progress Note Date: 11/12/23 NAEON. No F/C. No SOB or CP. No headache or blurry vision. Endorses diarrhea but no melena or hematochezia. Tolerating diet without N/V. Objective - Vital Signs Vital signs: Vital Signs Temp 98.1 F 11/12/23 07:28 Pulse 77 11/12/23 07:28 Resp 16 11/12/23 07:28 BP 110/67 11/12/23 07:28 Pulse Ox 97 11/12/23 07:28 FiO2 Intake & Output 11/11/23 11/12/23 11/12/23 18:59 06:59 18:59 Intake Total 150 Balance 150 Weight 71.5 kg Intake: Intake, IV Titration 150 Amount Sodium Chloride 0.9% 1, 150 000 ml @ 75 mls/hr IV . [id number] STA Rx#:[id number] Other: # Voids 3 - Exam Gen: AxO, NAD Pulm: non-labored respirations Abd: soft, non-tender, non-distended. No guarding/rebound/Rigidity Extrem: no edema seen - Labs CBC & Chem 7: 11/12/23 04:14 11/12/23 04:14 Labs: Abnormal Lab Results - Last 24 Hours (Table) 11/12/23 11/12/23 Range/Units 04:14 04:14 RBC 4.08 L (4.10-5.20) X 10*6/uL Hct 37.0 L (37.2-46.3) % MPV 9.4 L (9.5-12.2) FL Eosinophils # 0.36 H (0.04-0.35) X 10*3/uL Potassium 3.1 L (3.5-5.5) mmol/L BUN 8.1 L (9.0-27.0) mg/dL BUN/Creatinine Ratio 9.00 L (12.00-20.00) Ratio ALT 47 H (8-44) U/L Assessment and Plan Assessment: Patient is a 52F who presents with abdominal pain and CT evidence of colitis Plan: -CLD as tolerated -IVF hydration -IV abx -PRN pain and nausea control -DVT/GI PPx -Plan for C-scope on tuesday Desmond Benson MD General Surgery
[2023-11-12] MEDS ORDERED: Potassium Replacement Protocol 1 EACH MISC MISCELLANE PRN (11:58)
[2023-11-12] MEDS: POTASSIUM CHLORIDE ER 20 MEQ TAB.ER PO SCH (12:42)
[2023-11-12] MEDS: 0.9% NACL WITH KCL 40 MEQ/L 1,000 ML IV SCH (15:57)
--- NOTE | 2023-11-12 21:41 | PN ---
PROGRESS NOTE DATE OF SERVICE: 11/12/2023 SUBJECTIVE: This is a 52-year-old woman, who was admitted with abdominal pain and diarrhea with diffuse colitis, is being closely monitored. Surgery is planning colonoscopy on Tuesday. No chest pain. No palpitation. OBJECTIVE: VITAL SIGNS: Pulse 77, blood pressure 120/67, respirations 16. CHEST: A few scattered rhonchi and crackles. ABDOMEN: Soft. NERVOUS SYSTEM: Nonfocal. LABORATORY DATA: Potassium 3.1. ASSESSMENT: 1. Abdominal pain, diarrhea with possible diffuse colitis, possibly infectious versus inflammatory. 2. Elevated AST, ALT. 3. Elevated lipase with normal amylase. 4. History of hypertension. 5. History of renal stones. 6. Appendectomy. RECOMMENDATIONS: Recommend to continue current management and continue symptomatic treatment. Otherwise, at this time, continue the antibiotics. Repeat potassium. Otherwise, closely follow with Surgery. Further recommendations to follow. MMODL / IJN: [id number] /
[2023-11-13 09:21] LABS: Basophils # (A) 0.05 X 10*3/uL (0.00-0.10); Basophils % (A) 0.9 %; Eosinophils # (A) 0.36 X 10*3/uL (0.04-0.35); Eosinophils % (A) 6.3 %; HCT 37.2 % (37.2-46.3); HGB 12.8 g/dL (12.0-15.0); Lymphocytes # (A) 2.08 X 10*3/uL (0.90-5.00); Lymphocytes % (A) 36.2 %; MCH 30.3 pg (27.0-32.0); MCHC 34.4 g/dL (32.0-37.0); MCV 88.2 FL (80.0-97.0); Mean Platelet Volume 8.9 FL (9.5-12.2); Monocytes # (A) 0.56 X 10*3/uL (0.20-1.00); Monocytes % (A) 9.7 %; NRBC Per 100 WBC 0 X 10*3/uL (0.00-0.01); Neutrophils # (A) 2.69 X 10*3/uL (1.80-7.70); Neutrophils % (A) 46.7 %; Platelet Count 234 X 10*3/uL (140-440); RBC 4.22 X 10*6/uL (4.10-5.20); RDW 12.8 % (11.5-14.5); WBC 5.75 X 10*3/uL (4.50-10.00)
[2023-11-13] MEDS: PEG 3350 (236 GM/BTL) + LYTES 4,000 ML BOTTLE PO ONE (09:56)
[2023-11-13 10:22] LABS: BUN/Creat Ratio 8.78 Ratio (12.00-20.00); Blood Urea Nitrogen 7.9 mg/dL (9.0-27.0); Calcium 8.9 mg/dL (8.7-10.3); Carbon Dioxide 23.7 mmol/L (21.6-31.8); Chloride 106 mmol/L (96-109); Glucose 92 mg/dL (70-110); Sodium 140 mmol/L (135-145)
[2023-11-13] MEDS ORDERED: ZINC OXIDE PASTE (Z-GUARD) 1 APPLIC TOPICAL PRN (12:32)
--- NOTE | 2023-11-13 13:02 | P.PN ---
Subjective Progress Note Date: 11/13/23 patient [place] stable. She states her abdominal pain is improved. On exam vital signs are stable. Abdomen soft. Patient scheduled for colonoscopy tomorrow. Objective - Vital Signs Vital signs: Vital Signs Temp 98.4 F 11/13/23 07:43 Pulse 79 11/13/23 07:43 Resp 16 11/13/23 07:43 BP 108/73 11/13/23 07:43 Pulse Ox 99 11/13/23 07:43 FiO2 Intake & Output 11/12/23 11/13/23 11/13/23 18:59 06:59 18:59 Other: # Voids 3 3 - Labs CBC & Chem 7: 11/13/23 06:04 11/13/23 06:04 Labs: Abnormal Lab Results - Last 24 Hours (Table) 11/13/23 11/13/23 Range/Units 06:04 06:04 MPV 8.9 L (9.5-12.2) FL Eosinophils # 0.36 H (0.04-0.35) X 10*3/uL BUN 7.9 L (9.0-27.0) mg/dL BUN/Creatinine Ratio 8.78 L (12.00-20.00) Ratio Microbiology - Last 24 Hours (Table) 11/11/23 16:32 Blood Culture - Preliminary Blood
--- NOTE | 2023-11-14 00:08 | PN ---
PROGRESS NOTE DATE OF SERVICE: 11/13/2023 SUBJECTIVE: This 52-year-old woman was admitted with features of colitis, is improving significantly. The patient is scheduled for colonoscopy tomorrow. No chest pain, no palpitation. OBJECTIVE: VITAL SIGNS: Pulse is 79, blood pressure 119/73, respirations 16. CHEST: Clear to auscultation. CARDIOVASCULAR: S1, S2. ABDOMEN: Soft, nontender. LABORATORY DATA: Noted, WBC normal. ASSESSMENT: 1. Abdominal pain, diarrhea with possible diffuse colitis, possibly infectious versus inflammatory for colonoscopy tomorrow. 2. Elevated AST, ALT. 3. Elevated lipase with normal amylase. 4. Hypertension. 5. History of renal stones. RECOMMENDATIONS: Recommended to continue current management, continue symptomatic treatment. I would recommend repeat labs. Continue the antibiotics. Otherwise, I would recommend colonoscopy per surgery. Prognosis guarded. Further recommendations to follow. MMODL / IJN: [id number] /
[2023-11-14 05:51] LABS: ALT 45 U/L (4-34); AST 41 U/L (14-36); African American GFR (CKD) >90 (>60 ml/min/1.73 sqM); Albumin 3.6 g/dL (3.5-5.0); Albumin/Globulin Ratio 1.4; Alkaline Phosphatase 66 U/L (38-126); Anion Gap 4 mmol/L; Blood Urea Nitrogen 6 mg/dL (7-17); Calcium 8.5 mg/dL (8.4-10.2); Carbon Dioxide 27 mmol/L (22-30); Chloride 108 mmol/L (98-107); Globulin 2.6 g/dL; Glucose 84 mg/dL (74-99); Non-African American GFR(CKD) >90 (>60 ml/min/1.73 sqM); Potassium 4.1 mmol/L (3.5-5.1); Sodium 139 mmol/L (137-145); Total Bilirubin 0.9 mg/dL (0.2-1.3); Total Protein 6.2 g/dL (6.3-8.2)
[2023-11-14 06:12] LABS: Basophils % (A) 1 %; Eosinophils # (A) 0.3 k/uL (0-0.7); Eosinophils % (A) 5 %; HCT 38.7 % (34.0-46.0); Lymphocytes # (A) 1.9 k/uL (1.0-4.8); Lymphocytes % (A) 33 %; MCH 30.7 pg (25.0-35.0); MCHC 33.6 g/dL (31.0-37.0); MCV 91.3 fL (80.0-100.0); Mean Platelet Volume 7.2; Monocytes # (A) 0.4 k/uL (0-1.0); Monocytes % (A) 7 %; Neutrophils # (A) 3.1 k/uL (1.3-7.7); Neutrophils % (A) 52 %; Platelet Count 251 k/uL (150-450); RBC 4.24 m/uL (3.80-5.40); RDW 12.7 % (11.5-15.5); WBC 5.9 k/uL (3.8-10.6)
[2023-11-14] MEDS ORDERED: PROPOFOL 10 MG/ML 20 ML VIAL IV ONE (11:53)
[2023-11-14] MEDS ORDERED: LIDOCAINE 1% INJ 10MG/ML (20 ML MDV) ONE (11:53)
[2023-11-14] MEDS: SODIUM CHLORIDE 0.9% 500 ML 500 ML IV ONE (11:56)
--- NOTE | 2023-11-14 12:31 | P.PCN ---
Date of Procedure: 11/14/23 Procedure(s) Performed: PREOPERATIVE DIAGNOSIS: Colitis POSTOPERATIVE DIAGNOSIS: Normal exam PROCEDURE: Colonoscopy with random biopsy ANESTHESIA: MAC SURGEON: Venkat Mitchell M.D. SPECIMENS: Random colon ENDOSCOPIC PROCEDURE: The patient was placed on the endoscopy table in the left decubitus position. The Olympus colonoscope was inserted into the anus and passed under direct visualization to the base of the cecum. The appendiceal orifice was visualized. From that point the scope was slowly withdrawn inspecting all surfaces carefully. There were no neoplastic inflammatory or polypoid lesions throughout the cecum, ascending, transverse, descending, sigmoid and rectum. There was no visible diverticulosis noted. Random biopsies were taken given the recent CAT scan showing colitis. Digital rectal examination was normal. The patient was taken to the recovery room in stable condition per anesthesia guidelines. RECOMMENDATIONS: Await biopsy results. Advance diet. May discharge. Will contact patient with biopsy results.
--- NOTE | 2023-11-14 13:29 | DS ---
DISCHARGE SUMMARY FINAL DIAGNOSES: 1. Abdominal pain, diarrhea, possibly diffuse colitis, status post colonoscopy, colonoscopy showing a normal exam. 2. Elevated AST, ALT improved. 3. Elevated lipase, normal amylase. 4. Hypertension. 5. History of renal stones. DISCHARGE DISPOSITION: The patient will be discharged in stable condition with guarded prognosis HISTORY OF PRESENT ILLNESS: This 52-year-old woman was admitted with abdominal pain, features of colitis, treated symptomatically with antibiotics, improved significantly. A colonoscopy done by Dr. Mitchell did not show any acute abnormalities. The patient will be discharged in stable condition, guarded prognosis. PHYSICAL EXAMINATION: VITAL SIGNS: Stable. CARDIOVASCULAR: S1, S2. ABDOMEN: Soft, nontender. The patient will be discharged with Cipro 500 mg p.o. b.i.d. for 5 days and Flagyl 500 mg t.i.d. for 5 days and follow up with Dr. July Mitchell as recommended. MMODL / IJN: [id number] /
[2023-11-14 13:32] VITALS: BP 101/72; PULSE 76; TEMP 97.6
[2023-11-14 14:40] LABS: Cryptosporidium Antigen Negative (Negative)
== END 2023-11-14 15:50 | disposition home or self-care (01) ==
LOC: EC 09:15 → 5NMEDONC 10:59 → UNDOADMOB 10:59 → 5NMEDONC 11:00 → OBSVTOIN 11:00 → INTOOBSV 11:00 → 5NMEDONC 13:34 → UNDODISIN 11-14 15:50
PROVIDERS: ADMIT Internal Medicine; ATTEND Internal Medicine
DX: K52.9 Noninfective gastroenteritis and colitis, unspecified (principal); R74.8 Abnormal levels of other serum enzymes; I10 Essential (primary) hypertension; Z87.442 Personal history of urinary calculi; Z90.49 Acquired absence of other specified parts of digestive tract; Z88.0 Allergy status to penicillin; Z88.2 Allergy status to sulfonamides; Z80.0 Family history of malignant neoplasm of digestive organs
CPT/HCPCS: 96376 ×5; 96361 ×4; 96365; 96366 ×3; 96375; 99285; 36415; 93005; 85379; 88305; 80053 ×3; 80048; 85652; 82150 ×2; 83605; 83690 ×2; 83735; 84132; 84484; 85025 ×4; 85610; 85730; 86140; 87040; 87324; 87045; 87329; 87328; 83630; 87046; 71045; 74177; 45380; G0378 ×4; J1956 ×3; J2001; J1170; J2704; C9113 ×4; Q9967; 96374

== ENCOUNTER → 2024-03-22 | Outpatient (CLI) | payer BC ==
--- NOTE | 2024-03-23 10:04 | MM ---
Reason for Exam: Screening (asymptomatic). Last mammogram was performed 1 year(s) and 4 month(s) ago. Patient History: Menarche at age 9. First Full-Term at age 21. Postmenopausal. Hormonal Contraceptives for 12 years from age 14 until age 26. 11/03/2020, Benign Core Biopsy on the left side. 11/03/2020, MG discontinued stereo core LT on the left side. Paternal grandmother had breast cancer, age 82. Paternal aunt had breast cancer, age 60. Paternal aunt had breast cancer, age 60. Paternal aunt had breast cancer, age 60. Paternal aunt had breast cancer at or over age 50. Maternal grandmother had ovarian cancer under age 50. Risk Values: Lela 5 year model risk: 1.4%. NCI Lifetime model risk: 9.5%. Prior Study Comparison: 11/03/2021 Bilateral MG 3D diag mammo w/cad [facility], [facility]. 05/17/2022 Left MG 3D diag mammo w/cad LT, [facility]. 11/26/2022 Bilateral MG 3D screening mammo w/cad, [facility]. Tissue Density: The breasts are heterogeneously dense, which may obscure small masses. Findings: Analyzed By CAD. There is no suspicious group of microcalcifications or new suspicious mass in either breast. Overall Assessment: Negative, BI-RAD 1 Management: Screening Mammogram of both breasts in 1 year. . Patient should continue monthly self-breast exams. A clinical breast exam by your physician is recommended on an annual basis. This exam should not preclude additional follow-up of suspicious palpable abnormalities. Note on Lela scores and lifetime risk: 1. A Lela score greater than 3% is considered moderate risk. If this is the case, consider specialist referral to assess eligibility for a risk reducing agent. 2. If overall lifetime risk for the development of breast cancer is 20% or higher, the patient may qualify for future screening with alternating mammogram and breast MRI. [facility], , 03/23/2024 10:02 AM. Electronically signed and approved by: Amol Crawford M.D. Radiologis
== END | disposition home or self-care (01) ==
LOC: RADMAMWWP 07:45
PROVIDERS: ATTEND Family Medicine
CPT/HCPCS: 77063; 77067

== ENCOUNTER → 2024-10-04 | Outpatient (CLI) | payer BC ==
--- NOTE | 2024-10-04 11:36 | XR ---
EXAMINATION TYPE: XR knee limited RT DATE OF EXAM: 10/04/2024 11:29 AM COMPARISON: None. CLINICAL INDICATION: Female, 53 years old with history of M25.561, W18.30XA, pain TECHNIQUE: 2 view(s) obtained. FINDINGS: Joint spaces appear preserved. No acute fracture or dislocation evident. No joint effusion evident. M ild soft tissue swelling over the patella present. Follow-up exam can be performed 7-10 days from acute trauma for continued pain. IMPRESSION: 1. No acute osseous abnormality. 2. There may be some superficial soft tissue swelling over the patella. [facility], , 10/04/2024 11:34 AM
== END | disposition home or self-care (01) ==
LOC: RADXRMAIN 11:08
PROVIDERS: ATTEND Nurse Practitioner Family
DX: M25.561 Pain in right knee (principal); W18.30XA Fall on same level, unspecified, initial encounter

== ENCOUNTER → 2024-12-19 | Outpatient (CLI) | payer BC ==
[2024-12-19 15:30] LABS: ALT 65 U/L (8-44); AST 45 U/L (13-35); Albumin 4.5 g/dL (3.8-4.9); Albumin/Globulin Ratio 1.36 Ratio (1.60-3.17); Alkaline Phosphatase 88 U/L (41-126); Anion Gap 10.60 mmol/L (4.00-12.00); BUN/Creat Ratio 15.00 Ratio (12.00-20.00); Blood Urea Nitrogen 13.5 mg/dL (9.0-27.0); Calcium 9.3 mg/dL (8.7-10.3); Carbon Dioxide 27.4 mmol/L (21.6-31.8); Chloride 103 mmol/L (96-109); Globulin 3.3 g/dL (1.6-3.3); Glucose 93 mg/dL (70-110); Potassium 4.1 mmol/L (3.5-5.5); Sodium 141 mmol/L (135-145); Total Protein 7.8 g/dL (6.2-8.2)
== END | disposition home or self-care (01) ==
LOC: LABWHC1 08:20
PROVIDERS: ATTEND Family Medicine
DX: E87.6 Hypokalemia (principal); R74.01 Elevation of levels of liver transaminase levels; R79.9 Abnormal finding of blood chemistry, unspecified
CPT/HCPCS: 36415; 80053